=== PATIENT | female | born 1965 | race African-American/Black ===

== ENCOUNTER 2019-03-22 11:21 | Inpatient (IN) | payer MEDICARE, MEDICAID ==
[~2019-03-22] VITALS: Ht 160 cm; Wt 39.6 kg
[2019-03-22] MEDS ORDERED: SODIUM CHLORIDE 0.9% 1,000 ML IV ONE (12:01)
[2019-03-22] MEDS ORDERED: MORPHINE SULFATE 4 MG/ML CPJ (NOT FOR IM USE) IV STA (12:21)
[2019-03-22] MEDS ORDERED: ONDANSETRON HCL 4MG/2ML INJ IV STA (12:21)
[2019-03-22 12:39] LABS: BASOPHILS % 0.5 % (0.0-2.0); EOSINOPHILS % 0.2 % (0.0-5.0); HEMATOCRIT. 37.2 % (36.0-48.0); HEMOGLOBIN. 12.2 g/dL (12.0-16.0); LYMPHOCYTES % 17.9 % (20.0-50.0); MEAN CORPUSCULAR HEMOGLOBIN 29.2 pg (28.0-32.0); MEAN CORPUSCULAR VOLUME 88.8 fL (81.0-99.0); MONOCYTES % 7.6 % (2.0-8.0); NEUTROPHILS % 73.8 % (40.0-76.0); PLATELET 236 x1000/uL (130-400); RED BLOOD CELL COUNT 4.19 mill/uL (4.2-5.4)
[2019-03-22 12:44] LABS: CHLORIDE 107 mEq/L (98-107); PROTHROMBIN TIME 10.5 sec (9.6-11.0)
[2019-03-22 12:49] LABS: ETHANOL BLOOD < 10 mg/dL
[2019-03-22 13:27] LABS: HCG SCREEN NEGATIVE
[2019-03-22 16:43] LABS: CLARITY URINE CLEAR (CLEAR); COLOR URINE YELLOW (YELLOW); KETONES URINE NEGATIVE (NEGATIVE); LEUKOCYTE ESTERASE URINE 2+ (NEGATIVE); NITRITE URINE NEGATIVE (NEGATIVE); OCCULT BLOOD URINE NEGATIVE (NEGATIVE); PROTEIN URINE 1+ (NEGATIVE); SPECIFIC GRAVITY URINE 1.016 (1.005-1.030)
[2019-03-22] MEDS ORDERED: CEFTRIAXONE 1 G PREMIX 50 ML IV ONE (17:00)
[2019-03-22] MEDS ORDERED: METRONIDAZOLE 500MG TABLET PO ONE (19:00)
[2019-03-22] MEDS ORDERED: HYDROCODONE/ACETAMINOPHEN 5/325MG TABLET PO PRN (19:30)
[2019-03-22] MEDS ORDERED: CLONIDINE 0.1MG TABLET PO PRN (19:30)
[2019-03-22] MEDS ORDERED: GUAIFENESIN 200MG/10ML SUGAR FREE UDC PO PRN (19:30)
[2019-03-22] MEDS ORDERED: DOCUSATE SODIUM 100MG CAPSULE PO PRN (19:30)
[2019-03-22] MEDS ORDERED: ACETAMINOPHEN 325MG TABLET PO PRN (19:30)
[2019-03-22] MEDS ORDERED: ONDANSETRON HCL 4MG/2ML INJ IV PRN (19:30)
[2019-03-22 21:20] VITALS: BP 128/83
[2019-03-22] MEDS: PREDNISONE 20MG TABLET PO SCH (23:25)
[2019-03-22] MEDS ORDERED: FOLI-43 PO (23:59)
[2019-03-22] MEDS ORDERED: HYDR200T80 PO (23:59)
[2019-03-22] MEDS ORDERED: CHOL20004 PO (23:59)
[2019-03-23] VITALS: BP 140/91
[2019-03-23] MEDS: LEVOFLOXACIN 500MG PREMIX 100 ML IV SCH ×2 (00:01→23:53)
[2019-03-23 04:00] VITALS: BP 102/67
[2019-03-23 07:27] LABS: CHLORIDE 108 mEq/L (98-107)
[2019-03-23 07:29] LABS: BASOPHILS % 0.2 % (0.0-2.0); EOSINOPHILS % 0.1 % (0.0-5.0); HEMATOCRIT. 35.2 % (36.0-48.0); HEMOGLOBIN. 11.7 g/dL (12.0-16.0); LYMPHOCYTES % 16.7 % (20.0-50.0); MEAN CORPUSCULAR HEMOGLOBIN 29.3 pg (28.0-32.0); MEAN CORPUSCULAR VOLUME 88.2 fL (81.0-99.0); MEAN PLATELET VOLUME 7.9 fl (7.4-10.4); MONOCYTES % 2.7 % (2.0-8.0); NEUTROPHILS % 80.3 % (40.0-76.0); PLATELET 257 x1000/uL (130-400); RED BLOOD CELL COUNT 3.99 mill/uL (4.2-5.4); RED CELL DISTRIBUTION WIDTH 14.9 % (11.6-14.6)
[2019-03-23 08:00] VITALS: BP 138/87
[2019-03-23] MEDS ORDERED: ENOXAPARIN 40MG/0.4ML SYR SUBCUT SCH (09:00)
[2019-03-23] MEDS: AMLODIPINE 10MG TABLET PO SCH (09:18)
[2019-03-23] MEDS: PREDNISONE 20MG TABLET PO SCH (09:18)
[2019-03-23 12:00] VITALS: BP 135/86
[2019-03-23] MEDS: HYDROXYCHLOROQUINE SULFATE 200MG TABLET PO SCH (13:50)
[2019-03-23] MEDS: FOLIC ACID 1MG TABLET PO SCH (13:51)
[2019-03-23 16:00] VITALS: BP 134/84
[2019-03-23 20:00] VITALS: BP 128/85
[2019-03-23] MEDS: LORATADINE 10MG TABLET PO SCH (20:50)
[2019-03-23] MEDS: PANTOPRAZOLE 40MG DR TABLET PO SCH (20:50)
[2019-03-23] MEDS ORDERED: LOSARTAN POTASSIUM 50 MG TABLET PO SCH (21:00)
[2019-03-24] VITALS: BP 129/86
[2019-03-24 04:00] VITALS: BP 126/83
[2019-03-24 08:00] VITALS: BP 128/83
[2019-03-24] MEDS: PANTOPRAZOLE 40MG DR TABLET PO SCH (08:40)
[2019-03-24] MEDS ORDERED: ENOXAPARIN 30MG/0.3ML SYR SUBCUT SCH (09:00)
[2019-03-24] MEDS: FOLIC ACID 1MG TABLET PO SCH (09:42)
[2019-03-24] MEDS: HYDROXYCHLOROQUINE SULFATE 200MG TABLET PO SCH (09:42)
[2019-03-24] MEDS: PREDNISONE 20MG TABLET PO SCH ×2 (09:43→13:09)
[2019-03-24] MEDS: LORATADINE 10MG TABLET PO SCH (09:43)
[2019-03-24] MEDS: AMLODIPINE 10MG TABLET PO SCH (09:43)
[2019-03-24 12:00] VITALS: BP 142/88
[2019-03-24] MEDS ORDERED: P20 PO (12:52)
[2019-03-24] MEDS ORDERED: AMOX1TAB15 MT (12:52)
[2019-03-24 14:00] VITALS: BP 142/88
== END 2019-03-24 14:45 | disposition home or self-care (01) | DRG 545 ==
LOC: ER 11:21 → 5WST 15:59 → ENRESERV 18:50
PROVIDERS: ADMIT Hospitalist; ATTEND Hospitalist
DX: M32.9 Systemic lupus erythematosus, unspecified (principal); E43 Unspecified severe protein-calorie malnutrition; N39.0 Urinary tract infection, site not specified; I10 Essential (primary) hypertension; J01.90 Acute sinusitis, unspecified; A59.9 Trichomoniasis, unspecified; I73.00 Raynaud's syndrome without gangrene; J44.9 Chronic obstructive pulmonary disease, unspecified; K12.1 Other forms of stomatitis; K21.9 Gastro-esophageal reflux disease without esophagitis; M19.90 Unspecified osteoarthritis, unspecified site; Z83.2 Family history of diseases of the blood and blood-forming organs and certain disorders involving the immune mechanism; Z82.61 Family history of arthritis; Z82.49 Family history of ischemic heart disease and other diseases of the circulatory system; Z87.891 Personal history of nicotine dependence
CPT/HCPCS: 36415; 71045; 80320; 81003; 84484; 84703; 85651; 86141; 93970; 96361; 96365; 96375; 99285; J0696; J1650; J1956; J2270; J2405; J7030; J7040; J7512; G0480

== ENCOUNTER 2021-08-27 13:45 | Inpatient (IN) | payer MEDICARE, MEDICAID ==
[~2021-08-27] VITALS: Ht 160 cm; Wt 44.2 kg
[~2021-08-27 13:45] MED LIST: AMOX1TAB15 MT; CHOL20004 PO; FOLI-43 PO; HYDR200T80 PO; P20 PO
[2021-08-27] MEDS ORDERED: IPRATROPIUM BROMIDE (0.02%) 0.5MG/2.5ML NEB HHN STA (14:46)
[2021-08-27] MEDS ORDERED: METHYLPREDNISOLONE SOD SUCC 125 MG/2 ML VIAL IV STA (14:46)
[2021-08-27] MEDS ORDERED: ALBUTEROL (0.083%) 2.5MG/3ML NEB HHN SCH (15:00)
[2021-08-27 15:56] LABS: HEMATOCRIT. 34.8 % (36.0-48.0); HEMOGLOBIN. 11.2 g/dL (12.0-16.0); MEAN CORPUSCULAR HEMOGLOBIN 29.4 pg (28.0-32.0); MEAN PLATELET VOLUME 7.4 fl (7.4-10.4); PLATELET 212 x1000/uL (130-400); RED BLOOD CELL COUNT 3.82 mill/uL (4.2-5.4); RED CELL DISTRIBUTION WIDTH 15.3 % (11.6-14.6)
[2021-08-27] MEDS ORDERED: LIDOCAINE HCL/EPINEPHRINE 1%-EPI 1:100,000 20 ML VIAL INFIL ONE (16:00)
[2021-08-27 16:03] LABS: CHLORIDE 106 mEq/L (98-107)
[2021-08-27 16:21] LABS: PLATELET ESTIMATE NORMAL
[2021-08-27] MEDS ORDERED: MORPHINE SULFATE 4 MG/ML CPJ (NOT FOR IM USE) IV ONE (16:45)
[2021-08-27] MEDS ORDERED: ONDANSETRON HCL 4MG/2ML INJ IV NR (17:00)
[2021-08-27] MEDS ORDERED: DOXYCYCLINE 100 MG in DEXT 5% WATER 100 ML IV SCH (17:30)
[2021-08-27] MEDS ORDERED: CEFTRIAXONE 1 G PREMIX 50 ML IV ONE (17:30)
[2021-08-27 22:00] VITALS: BP 128/83
[2021-08-27] MEDS ORDERED: HEPARIN 25,000 UNITS PREMIX 250 ML IV PRN (23:15)
[2021-08-27] MEDS ORDERED: ALBUTEROL (0.083%) 2.5MG/3ML NEB HHN PRN (23:15)
[2021-08-27] MEDS ORDERED: HEPARIN BOLUS PRN aPTT <36 IV (23:45)
[2021-08-27] MEDS ORDERED: HEPARIN 80 UNITS/KG BOLUS IV NR (23:45)
[2021-08-27] MEDS ORDERED: HEPARIN 25,000 UNITS PREMIX 250 ML IV SCH (23:45)
[2021-08-28] VITALS (12 sets, daily range): BP systolic 114–158; BP diastolic 50–98
[2021-08-28] MEDS ORDERED: MAGNESIUM/ALUMINUM HYDROXIDE/SIMETHICONE 30ML UDC PO PRN (01:00)
[2021-08-28] MEDS ORDERED: LORAZEPAM 2MG/ML CPJ IV PRN (01:00)
[2021-08-28] MEDS ORDERED: ZOLPIDEM TARTRATE 5MG TABLET PO PRN (01:00)
[2021-08-28] MEDS ORDERED: METHOTREXATE SODIUM 2 . 5MG TABLET PO SCH (01:00)
[2021-08-28] MEDS ORDERED: ONDANSETRON HCL 4MG/2ML INJ IV PRN (01:00)
[2021-08-28] MEDS ORDERED: DIPHENHYDRAMINE 50MG/ML VIAL IV PRN (01:00)
[2021-08-28] MEDS ORDERED: ACETAMINOPHEN 325MG TABLET PO PRN (01:00)
[2021-08-28] MEDS ORDERED: IPRATROPIUM/ALBUTEROL 0.5-3(2.5)MG/3ML NEB NEB PRN (01:00)
[2021-08-28] MEDS ORDERED: DOCUSATE SODIUM 100MG CAPSULE PO PRN (01:00)
[2021-08-28] MEDS ORDERED: VANCOMYCIN 1G PREMIX 200 ML IV SCH (01:00)
[2021-08-28 02:03] LABS: INR 1.1; PARTIAL THROMBOPLASTIN TIME 25.8 sec (23.4-31.0); PROTHROMBIN TIME 11.3 sec (9.6-11.0)
[2021-08-28] MEDS: VENLAFAXINE HCL 50MG TABLET PO SCH ×2 (02:44→20:59)
[2021-08-28] MEDS ORDERED: LEVOFLOXACIN 500MG PREMIX 100 ML IV SCH (03:00)
[2021-08-28] MEDS: HEPARIN 25,000 UNITS in DEXT 5% WATER 245 ML IV SCH ×2 (03:12→21:19)
[2021-08-28] MEDS: DEXT 5%/0.45% NACL 1000ML 1,000 ML IV SCH ×2 (03:31→15:26)
[2021-08-28] MEDS ORDERED: VANCOMYCIN 750MG PMX (XELLIA) 150 ML IV NR (04:00)
[2021-08-28] MEDS: METHYLPREDNISOLONE SOD SUCC 40 MG/ML VIAL IV SCH ×3 (05:24→17:34)
[2021-08-28] MEDS: OXYBUTYNIN CHLORIDE 5MG TABLET PO SCH ×3 (05:25→21:00)
[2021-08-28] MEDS ORDERED: ALENDRONATE SODIUM 35MG TABLET PO SCH (07:00)
[2021-08-28 07:28] LABS: HEMATOCRIT. 33.4 % (36.0-48.0); HEMOGLOBIN. 10.7 g/dL (12.0-16.0); MEAN CORPUSCULAR HEMOGLOBIN 28.8 pg (28.0-32.0); MEAN CORPUSCULAR VOLUME 90.2 fL (81.0-99.0); PLATELET 227 x1000/uL (130-400); RED BLOOD CELL COUNT 3.71 mill/uL (4.2-5.4); RED CELL DISTRIBUTION WIDTH 15.1 % (11.6-14.6)
[2021-08-28 07:45] LABS: CHLORIDE 104 mEq/L (98-107)
[2021-08-28 07:54] LABS: CLARITY URINE CLEAR (CLEAR); COLOR URINE YELLOW (YELLOW); KETONES URINE NEGATIVE (NEGATIVE); LEUKOCYTE ESTERASE URINE NEGATIVE (NEGATIVE); NITRITE URINE NEGATIVE (NEGATIVE); OCCULT BLOOD URINE NEGATIVE (NEGATIVE); PH URINE 5.5 (4.5-8.0); PROTEIN URINE 1+ (NEGATIVE); SPECIFIC GRAVITY URINE 1.083 (1.005-1.030); UROBILINOGEN URINE 0.2 E.U./dL (0.2-1.0)
[2021-08-28 07:55] LABS: CREATINE KINASE 100 IU/L (26-192); T4 FREE 1.22 ng/dL (0.76-1.46)
[2021-08-28 07:58] LABS: CREATINE KINASE MB FRACTION 2.4 ng/mL (0.5-3.6)
[2021-08-28] MEDS ORDERED: *PATIENT'S OWN MEDICATION STORAGE XX SCH (08:00)
[2021-08-28] MEDS ORDERED: ERGOCALCIFEROL 50000UNITS CAPSULE PO SCH (09:00)
[2021-08-28] MEDS: METOPROLOL SUCCINATE 50MG ER TABLET PO SCH (09:00)
[2021-08-28] MEDS ORDERED: HYDRALAZINE HCL 25MG TABLET PO SCH (09:00)
[2021-08-28] MEDS: AMLODIPINE 5MG TABLET PO SCH (09:18)
[2021-08-28] MEDS: HYDROXYCHLOROQUINE SULFATE 200MG TABLET PO SCH (09:19)
[2021-08-28] MEDS: FOLIC ACID 1MG TABLET PO SCH (09:19)
[2021-08-28] MEDS: TRIAMCINOLONE ACETONIDE 0.1% CREAM 15GM TOP SCH ×2 (09:24→21:06)
[2021-08-28] MEDS: FLUTICASONE/VILANTEROL 200-25 BLST.W.DEV ORI SCH (09:24)
[2021-08-28] MEDS ORDERED: VANCOMYCIN 750MG PMX (XELLIA) 150 ML IV SCH (16:00)
[2021-08-28 16:44] LABS: CREATINE KINASE MB FRACTION 3.3 ng/mL (0.5-3.6)
[2021-08-28] MEDS: MONTELUKAST SODIUM 10MG TABLET PO SCH (17:16)
[2021-08-28] MEDS: HYDROMORPHONE HCL/PF 2MG/ML CPJ IV PRN (18:18)
[2021-08-28 20:22] LABS: PLATELET ESTIMATE NORMAL
[2021-08-28] MEDS: CYCLOBENZAPRINE 10MG TABLET PO SCH (20:59)
[2021-08-28] MEDS: HYDRALAZINE HCL 50MG TABLET PO SCH (21:00)
[2021-08-28] MEDS: HEPARIN BOLUS PRN aPTT 37-44 IV (21:02)
[2021-08-28] MEDS: LACTULOSE 20G/30ML UDC PO SCH (21:05)
[2021-08-28] MEDS: LOSARTAN POTASSIUM 100 MG TABLET PO SCH (21:06)
[2021-08-28] MEDS: CEFEPIME 1,000 MG in DEXTROSE 5% WATER 50 ML IV SCH (22:58)
[2021-08-29] VITALS (12 sets, daily range): BP systolic 110–144; BP diastolic 71–96
[2021-08-29] MEDS: DOXYCYCLINE 100 MG in DEXT 5% WATER 100 ML IV SCH ×3 (00:16→21:42)
[2021-08-29] MEDS: METHYLPREDNISOLONE SOD SUCC 40 MG/ML VIAL IV SCH ×4 (00:16→18:30)
[2021-08-29] MEDS: IPRATROPIUM/ALBUTEROL 0.5-3(2.5)MG/3ML NEB NEB SCH ×5 (00:39→21:00)
[2021-08-29 03:12] LABS: HEMATOCRIT. 29.5 % (36.0-48.0); HEMOGLOBIN. 9.3 g/dL (12.0-16.0); MEAN CORPUSCULAR HEMOGLOBIN 28.3 pg (28.0-32.0); MEAN CORPUSCULAR VOLUME 90.1 fL (81.0-99.0); MEAN PLATELET VOLUME 7.5 fl (7.4-10.4); PLATELET 228 x1000/uL (130-400); RED BLOOD CELL COUNT 3.28 mill/uL (4.2-5.4); RED CELL DISTRIBUTION WIDTH 15.6 % (11.6-14.6)
[2021-08-29 03:28] LABS: CHLORIDE 102 mEq/L (98-107)
[2021-08-29] MEDS: DEXT 5%/0.45% NACL 1000ML 1,000 ML IV SCH ×3 (04:06→17:14)
[2021-08-29] MEDS: HEPARIN 25,000 UNITS in DEXT 5% WATER 245 ML IV SCH ×2 (04:07→09:52)
[2021-08-29] MEDS: HEPARIN BOLUS PRN aPTT 37-44 IV (04:07)
[2021-08-29 05:56] LABS: PLATELET ESTIMATE NORMAL
[2021-08-29] MEDS: OXYBUTYNIN CHLORIDE 5MG TABLET PO SCH ×3 (06:34→21:37)
[2021-08-29 07:23] LABS: INR 1.1; PROTHROMBIN TIME 11.3 sec (9.6-11.0)
[2021-08-29 07:43] LABS: PARTIAL THROMBOPLASTIN TIME 75.3 sec (23.4-31.0)
[2021-08-29] MEDS: HYDRALAZINE HCL 50MG TABLET PO SCH ×2 (09:00→21:37)
[2021-08-29] MEDS ORDERED: METHOTREXATE SODIUM 2 . 5MG TABLET PO SCH ×2 (09:00→21:00)
[2021-08-29] MEDS: FOLIC ACID 1MG TABLET PO SCH (09:05)
[2021-08-29] MEDS: AMLODIPINE 5MG TABLET PO SCH (09:05)
[2021-08-29] MEDS: HYDROXYCHLOROQUINE SULFATE 200MG TABLET PO SCH (09:05)
[2021-08-29] MEDS: FLUTICASONE/VILANTEROL 200-25 BLST.W.DEV ORI SCH (09:06)
[2021-08-29] MEDS: METOPROLOL SUCCINATE 50MG ER TABLET PO SCH (09:06)
[2021-08-29 09:07] LABS: ANTI-DNA DOUBLE STRANDED QUANT < 1 IU/mL (0-9)
[2021-08-29] MEDS: TRIAMCINOLONE ACETONIDE 0.1% CREAM 15GM TOP SCH ×2 (09:07→23:29)
[2021-08-29] MEDS: HYDROMORPHONE HCL/PF 2MG/ML CPJ IV PRN (09:08)
[2021-08-29] MEDS ORDERED: LIDOCAINE HCL 1% 10 MG/ML 10ML VIAL ONE (09:08)
[2021-08-29 09:33] LABS: BG CARBOXYHEMOGLOBIN 0.2 % (0.5-1.5); BG DEOXYHEMOGLOBIN 17.4 % (0.0-5.0); BG FRACTION INSPIRED OXYGEN 21; BG HCO3 ACT 20.3 mmol/L (22.0-26.0); BG METHEMOGLOBIN 0.3 % (0.0-1.5); BG OXYGEN SATURATION 82.5 % (92.0-98.5); BG OXYHEMOGLOBIN 82.1 % (94.0-97.0); BG PCO2 30.1 mmHg (35.0-45.0); BG PH 7.447 (7.350-7.450); BG PO2 48.4 mmHg (75.0-100.0); BG SAMPLE SITE RIGHT BRACHIAL; BG TOTAL HEMOGLOBIN 9.9 g/dL (12.0-18.0); BG VENT MODE ROOM AIR
[2021-08-29 10:09] LABS: CHLORIDE 105 mEq/L (98-107)
[2021-08-29] MEDS: CEFEPIME 1,000 MG in DEXTROSE 5% WATER 50 ML IV SCH ×2 (11:26→21:42)
[2021-08-29] MEDS: MONTELUKAST SODIUM 10MG TABLET PO SCH (18:30)
[2021-08-29] MEDS: LOSARTAN POTASSIUM 100 MG TABLET PO SCH (21:37)
[2021-08-29] MEDS: CYCLOBENZAPRINE 10MG TABLET PO SCH (21:37)
[2021-08-29] MEDS: VENLAFAXINE HCL 50MG TABLET PO SCH (21:37)
[2021-08-29] MEDS: LACTULOSE 20G/30ML UDC PO SCH (21:42)
[2021-08-30] VITALS (13 sets, daily range): BP systolic 120–142; BP diastolic 69–97
[2021-08-30] MEDS: METHYLPREDNISOLONE SOD SUCC 40 MG/ML VIAL IV SCH ×4 (00:12→17:52)
[2021-08-30] MEDS: DEXT 5%/0.45% NACL 1000ML 1,000 ML IV SCH ×3 (03:21→23:58)
[2021-08-30] MEDS: OXYBUTYNIN CHLORIDE 5MG TABLET PO SCH ×3 (06:15→21:38)
[2021-08-30] MEDS: HYDROMORPHONE HCL/PF 2MG/ML CPJ IV PRN ×2 (06:32→22:15)
[2021-08-30 06:54] LABS: PARTIAL THROMBOPLASTIN TIME 60.4 sec (23.4-31.0); PROTHROMBIN TIME 10.9 sec (9.6-11.0)
[2021-08-30 06:56] LABS: HEMATOCRIT. 27.3 % (36.0-48.0); HEMOGLOBIN. 8.7 g/dL (12.0-16.0); MEAN CORPUSCULAR HEMOGLOBIN 28.8 pg (28.0-32.0); MEAN CORPUSCULAR VOLUME 90.5 fL (81.0-99.0); MEAN PLATELET VOLUME 7.5 fl (7.4-10.4); PLATELET 240 x1000/uL (130-400); RED BLOOD CELL COUNT 3.02 mill/uL (4.2-5.4); RED CELL DISTRIBUTION WIDTH 15.3 % (11.6-14.6)
[2021-08-30 07:09] LABS: CHLORIDE 105 mEq/L (98-107)
[2021-08-30] MEDS: IPRATROPIUM/ALBUTEROL 0.5-3(2.5)MG/3ML NEB NEB SCH ×4 (07:15→19:59)
[2021-08-30 09:07] LABS: ALDOLASE 12.4 U/L (3.3-10.3)
[2021-08-30] MEDS: AMLODIPINE 5MG TABLET PO SCH (09:27)
[2021-08-30] MEDS: HYDRALAZINE HCL 50MG TABLET PO SCH ×2 (09:27→21:38)
[2021-08-30] MEDS: FOLIC ACID 1MG TABLET PO SCH (09:28)
[2021-08-30] MEDS: METOPROLOL SUCCINATE 50MG ER TABLET PO SCH (09:28)
[2021-08-30] MEDS: FLUTICASONE/VILANTEROL 200-25 BLST.W.DEV ORI SCH (09:28)
[2021-08-30] MEDS: HYDROXYCHLOROQUINE SULFATE 200MG TABLET PO SCH (09:28)
[2021-08-30] MEDS: CEFEPIME 1,000 MG in DEXTROSE 5% WATER 50 ML IV SCH ×2 (09:29→21:38)
[2021-08-30] MEDS: APIXABAN 5 MG TABLET PO SCH ×2 (09:48→17:52)
[2021-08-30] MEDS: DOXYCYCLINE 100 MG in DEXT 5% WATER 100 ML IV SCH ×2 (09:48→21:37)
[2021-08-30] MEDS: TRIAMCINOLONE ACETONIDE 0.1% CREAM 15GM TOP SCH ×2 (10:02→21:39)
[2021-08-30 13:11] LABS: ACTIN (SMOOTH MUSCLE) ANTIBODY 3 Units (0-19); ANGIOTENSION CONVERTING ENZYME 24 U/L (14-82); ATYPICAL P-ANCA <1:20 titer (Neg:<1:20); CYTOPLASMIC C-ANCA <1:20 titer (Neg:<1:20); PERINUCLEAR P-ANCA <1:20 titer (Neg:<1:20)
[2021-08-30 14:12] LABS: PLATELET ESTIMATE NORMAL
[2021-08-30] MEDS: MONTELUKAST SODIUM 10MG TABLET PO SCH (17:52)
[2021-08-30] MEDS: CYCLOBENZAPRINE 10MG TABLET PO SCH (21:38)
[2021-08-30] MEDS: LOSARTAN POTASSIUM 100 MG TABLET PO SCH (21:38)
[2021-08-30] MEDS: LACTULOSE 20G/30ML UDC PO SCH (21:38)
[2021-08-30] MEDS: VENLAFAXINE HCL 50MG TABLET PO SCH (21:43)
[2021-08-31] VITALS (12 sets, daily range): BP systolic 114–137; BP diastolic 62–88
[2021-08-31] MEDS: IPRATROPIUM/ALBUTEROL 0.5-3(2.5)MG/3ML NEB NEB SCH ×5 (00:01→20:49)
[2021-08-31] MEDS: METHYLPREDNISOLONE SOD SUCC 40 MG/ML VIAL IV SCH (00:09)
[2021-08-31 06:33] LABS: HEMOGLOBIN. 8.4 g/dL (12.0-16.0); MEAN CORPUSCULAR HEMOGLOBIN 28.6 pg (28.0-32.0); MEAN CORPUSCULAR VOLUME 88.4 fL (81.0-99.0); MEAN PLATELET VOLUME 7.2 fl (7.4-10.4); PLATELET 188 x1000/uL (130-400); RED BLOOD CELL COUNT 2.95 mill/uL (4.2-5.4); RED CELL DISTRIBUTION WIDTH 14.8 % (11.6-14.6)
[2021-08-31] MEDS: OXYBUTYNIN CHLORIDE 5MG TABLET PO SCH ×3 (06:36→22:17)
[2021-08-31 06:58] LABS: CHLORIDE 103 mEq/L (98-107)
[2021-08-31] MEDS: HYDROXYCHLOROQUINE SULFATE 200MG TABLET PO SCH (08:29)
[2021-08-31] MEDS: FOLIC ACID 1MG TABLET PO SCH (08:29)
[2021-08-31] MEDS: APIXABAN 5 MG TABLET PO SCH ×2 (08:29→17:25)
[2021-08-31] MEDS: CEFEPIME 1,000 MG in DEXTROSE 5% WATER 50 ML IV SCH ×2 (08:29→22:17)
[2021-08-31] MEDS: FLUTICASONE/VILANTEROL 200-25 BLST.W.DEV ORI SCH (08:29)
[2021-08-31] MEDS: PREDNISONE 20MG TABLET PO SCH ×2 (08:30→17:25)
[2021-08-31] MEDS: HYDRALAZINE HCL 50MG TABLET PO SCH ×2 (08:30→22:16)
[2021-08-31] MEDS: METOPROLOL SUCCINATE 50MG ER TABLET PO SCH (08:32)
[2021-08-31] MEDS: AMLODIPINE 5MG TABLET PO SCH (08:32)
[2021-08-31] MEDS: TRIAMCINOLONE ACETONIDE 0.1% CREAM 15GM TOP SCH ×2 (08:33→22:18)
[2021-08-31 09:10] LABS: ANTI-MYELOPEROXIDASE AB < 9.0 U/mL (0.0-9.0)
[2021-08-31] MEDS: DOXYCYCLINE 100 MG in DEXT 5% WATER 100 ML IV SCH ×2 (09:51→22:17)
[2021-08-31 10:09] LABS: BG BASE EXCESS -0.2 mmol/L (-2.0-2.0); BG CARBOXYHEMOGLOBIN 0.2 % (0.5-1.5); BG DEOXYHEMOGLOBIN 11.6 % (0.0-5.0); BG FRACTION INSPIRED OXYGEN 21; BG HCO3 ACT 22.7 mmol/L (22.0-26.0); BG METHEMOGLOBIN 0.2 % (0.0-1.5); BG OXYGEN SATURATION 88.4 % (92.0-98.5); BG PCO2 30.4 mmHg (35.0-45.0); BG PH 7.491 (7.350-7.450); BG PO2 53.4 mmHg (75.0-100.0); BG SAMPLE SITE RIGHT RADIAL; BG TOTAL HEMOGLOBIN 8.7 g/dL (12.0-18.0)
[2021-08-31 13:08] LABS: PLATELET ESTIMATE NORMAL
[2021-08-31 17:06] LABS: ANA IFA Positive (.)
[2021-08-31] MEDS: MONTELUKAST SODIUM 10MG TABLET PO SCH (17:25)
[2021-08-31] MEDS: HYDROMORPHONE HCL/PF 2MG/ML CPJ IV PRN (18:36)
[2021-08-31] MEDS: VENLAFAXINE HCL 50MG TABLET PO SCH (22:16)
[2021-08-31] MEDS: CYCLOBENZAPRINE 10MG TABLET PO SCH (22:17)
[2021-08-31] MEDS: LOSARTAN POTASSIUM 100 MG TABLET PO SCH (22:17)
[2021-08-31] MEDS: LACTULOSE 20G/30ML UDC PO SCH (22:17)
[2021-09-01] VITALS (12 sets, daily range): BP systolic 103–133; BP diastolic 65–83
[2021-09-01] MEDS: IPRATROPIUM/ALBUTEROL 0.5-3(2.5)MG/3ML NEB NEB SCH ×4 (00:27→21:24)
[2021-09-01] MEDS: OXYBUTYNIN CHLORIDE 5MG TABLET PO SCH ×3 (06:33→21:54)
[2021-09-01 06:39] LABS: HEMATOCRIT. 24.6 % (36.0-48.0); MEAN CORPUSCULAR HEMOGLOBIN 29.5 pg (28.0-32.0); MEAN CORPUSCULAR VOLUME 90.3 fL (81.0-99.0); MEAN PLATELET VOLUME 7.3 fl (7.4-10.4); PLATELET 178 x1000/uL (130-400); RED BLOOD CELL COUNT 2.72 mill/uL (4.2-5.4); RED CELL DISTRIBUTION WIDTH 15.4 % (11.6-14.6)
[2021-09-01 06:47] LABS: CHLORIDE 105 mEq/L (98-107)
[2021-09-01] MEDS: TRIAMCINOLONE ACETONIDE 0.1% CREAM 15GM TOP SCH ×2 (08:41→20:44)
[2021-09-01] MEDS: FLUTICASONE/VILANTEROL 200-25 BLST.W.DEV ORI SCH (08:41)
[2021-09-01] MEDS: CEFEPIME 1,000 MG in DEXTROSE 5% WATER 50 ML IV SCH ×2 (08:42→20:41)
[2021-09-01] MEDS: APIXABAN 5 MG TABLET PO SCH ×2 (08:42→17:31)
[2021-09-01] MEDS: PREDNISONE 20MG TABLET PO SCH ×3 (08:42→21:54)
[2021-09-01] MEDS: HYDROXYCHLOROQUINE SULFATE 200MG TABLET PO SCH (08:42)
[2021-09-01] MEDS: FOLIC ACID 1MG TABLET PO SCH (08:43)
[2021-09-01] MEDS: AMLODIPINE 5MG TABLET PO SCH (08:43)
[2021-09-01] MEDS: METOPROLOL SUCCINATE 50MG ER TABLET PO SCH (08:43)
[2021-09-01] MEDS: HYDRALAZINE HCL 50MG TABLET PO SCH ×2 (08:43→20:43)
[2021-09-01] MEDS: DOXYCYCLINE 100 MG in DEXT 5% WATER 100 ML IV SCH ×2 (08:48→20:42)
[2021-09-01 09:07] LABS: ANTI-PROTEINASE 3 ABS < 3.5 U/mL (0.0-3.5)
[2021-09-01] MEDS ORDERED: NALOXONE HCL 0.4MG/ML VIAL IV PRN (09:45)
[2021-09-01 10:37] LABS: BG BASE EXCESS 4.9 mmol/L (-2.0-2.0); BG CARBOXYHEMOGLOBIN 0.5 % (0.5-1.5); BG FRACTION INSPIRED OXYGEN 32; BG HCO3 ACT 28.3 mmol/L (22.0-26.0); BG METHEMOGLOBIN 0.4 % (0.0-1.5); BG OXYHEMOGLOBIN 96.1 % (94.0-97.0); BG PCO2 37.1 mmHg (35.0-45.0); BG PH 7.501 (7.350-7.450); BG PO2 90.7 mmHg (75.0-100.0); BG SAMPLE SITE RIGHT BRACHIAL; BG TOTAL HEMOGLOBIN 9.4 g/dL (12.0-18.0); BG VENT MODE NASAL CANNULA
[2021-09-01 14:23] LABS: PLATELET ESTIMATE NORMAL
[2021-09-01] MEDS: MONTELUKAST SODIUM 10MG TABLET PO SCH (17:32)
[2021-09-01 17:52] LABS: BG BASE EXCESS 4.9 mmol/L (-2.0-2.0); BG CARBOXYHEMOGLOBIN 0.1 % (0.5-1.5); BG DEOXYHEMOGLOBIN 5.2 % (0.0-5.0); BG FRACTION INSPIRED OXYGEN 21; BG HCO3 ACT 27.8 mmol/L (22.0-26.0); BG METHEMOGLOBIN 0.3 % (0.0-1.5); BG OXYGEN SATURATION 94.8 % (92.0-98.5); BG OXYHEMOGLOBIN 94.4 % (94.0-97.0); BG PCO2 34.7 mmHg (35.0-45.0); BG PH 7.522 (7.350-7.450); BG PO2 71.3 mmHg (75.0-100.0); BG SAMPLE SITE LEFT BRACHIAL; BG TOTAL HEMOGLOBIN 9.4 g/dL (12.0-18.0); BG VENT MODE ROOM AIR
[2021-09-01 19:06] LABS: ANTI-CARDIOLIPIN AB IGA < 9 APL U/mL (0-11); ANTI-CARDIOLIPIN AB IGG < 9 GPL U/mL (0-14); ANTI-CARDIOLIPIN AB IGM < 9 MPL U/mL (0-12)
[2021-09-01] MEDS: LACTULOSE 20G/30ML UDC PO SCH (20:41)
[2021-09-01] MEDS: HYDROMORPHONE HCL/PF 2MG/ML CPJ IV PRN (20:42)
[2021-09-01] MEDS: CYCLOBENZAPRINE 10MG TABLET PO SCH (20:43)
[2021-09-01] MEDS: LOSARTAN POTASSIUM 100 MG TABLET PO SCH (20:43)
[2021-09-01] MEDS: VENLAFAXINE HCL 50MG TABLET PO SCH (20:44)
[2021-09-02] VITALS (7 sets, daily range): BP systolic 123–145; BP diastolic 79–97
[2021-09-02] MEDS: OXYBUTYNIN CHLORIDE 5MG TABLET PO SCH (06:23)
[2021-09-02 06:54] LABS: HEMATOCRIT. 24.2 % (36.0-48.0); MEAN CORPUSCULAR VOLUME 87.8 fL (81.0-99.0); MEAN PLATELET VOLUME 7.3 fl (7.4-10.4); PLATELET 187 x1000/uL (130-400); RED BLOOD CELL COUNT 2.75 mill/uL (4.2-5.4)
[2021-09-02 07:01] LABS: CHLORIDE 104 mEq/L (98-107)
[2021-09-02] MEDS: IPRATROPIUM/ALBUTEROL 0.5-3(2.5)MG/3ML NEB NEB SCH ×2 (08:32→11:32)
[2021-09-02] MEDS: HYDROXYCHLOROQUINE SULFATE 200MG TABLET PO SCH (09:42)
[2021-09-02] MEDS: PREDNISONE 20MG TABLET PO SCH (09:42)
[2021-09-02] MEDS: APIXABAN 5 MG TABLET PO SCH (09:42)
[2021-09-02] MEDS: HYDRALAZINE HCL 50MG TABLET PO SCH (09:42)
[2021-09-02] MEDS: FOLIC ACID 1MG TABLET PO SCH (09:42)
[2021-09-02] MEDS: FLUTICASONE/VILANTEROL 200-25 BLST.W.DEV ORI SCH (09:43)
[2021-09-02] MEDS: METOPROLOL SUCCINATE 50MG ER TABLET PO SCH (09:43)
[2021-09-02] MEDS: CEFEPIME 1,000 MG in DEXTROSE 5% WATER 50 ML IV SCH (09:47)
[2021-09-02] MEDS: AMLODIPINE 5MG TABLET PO SCH (09:47)
[2021-09-02] MEDS: TRIAMCINOLONE ACETONIDE 0.1% CREAM 15GM TOP SCH (09:56)
[2021-09-02] MEDS: DOXYCYCLINE 100 MG in DEXT 5% WATER 100 ML IV SCH (10:35)
[2021-09-02 21:37] LABS: PLATELET ESTIMATE NORMAL
[2021-09-07] MEDS ORDERED: APIXABAN 5 MG TABLET PO SCH (09:00)
== END 2021-09-02 12:54 | disposition home or self-care (01) | DRG 175 ==
LOC: ER 13:45 → 3WST 17:25 → EDBEDREQTM 17:33 → EDBEDREQ 17:33 → SUPCPDRO 20:32
PROVIDERS: ADMIT Internal Medicine Rheumatology; ATTEND Internal Medicine Rheumatology
PROC: 0W9B30Z Drainage of Left Pleural Cavity with Drainage Device, Percutaneous Approach (ICD-10-PCS; principal; 2021-08-27)
PROC: 02HV33Z Insertion of Infusion Device into Superior Vena Cava, Percutaneous Approach (ICD-10-PCS; 2021-08-29)
PROC: B548ZZA Ultrasonography of Superior Vena Cava, Guidance (ICD-10-PCS; 2021-08-29)
DX: I26.09 Other pulmonary embolism with acute cor pulmonale (principal); J96.01 Acute respiratory failure with hypoxia; E46 Unspecified protein-calorie malnutrition; Z68.1 Body mass index [BMI] 19.9 or less, adult; D68.59 Other primary thrombophilia; I82.401 Acute embolism and thrombosis of unspecified deep veins of right lower extremity; I31.3 Pericardial effusion (noninflammatory); M51.37 Other intervertebral disc degeneration, lumbosacral region; M54.12 Radiculopathy, cervical region; D72.810 Lymphocytopenia; I73.00 Raynaud's syndrome without gangrene; K59.00 Constipation, unspecified; M32.9 Systemic lupus erythematosus, unspecified; M81.0 Age-related osteoporosis without current pathological fracture; K21.9 Gastro-esophageal reflux disease without esophagitis; R30.0 Dysuria; J43.9 Emphysema, unspecified; J98.4 Other disorders of lung; I11.0 Hypertensive heart disease with heart failure; F17.210 Nicotine dependence, cigarettes, uncomplicated; D64.9 Anemia, unspecified; T38.0X5A Adverse effect of glucocorticoids and synthetic analogues, initial encounter; D72.829 Elevated white blood cell count, unspecified; I77.6 Arteritis, unspecified; M19.90 Unspecified osteoarthritis, unspecified site; M79.0 Rheumatism, unspecified; J34.0 Abscess, furuncle and carbuncle of nose; I50.9 Heart failure, unspecified; Z79.899 Other long term (current) drug therapy; Z83.2 Family history of diseases of the blood and blood-forming organs and certain disorders involving the immune mechanism; Z86.711 Personal history of pulmonary embolism; Y92.89 Other specified places as the place of occurrence of the external cause
CPT/HCPCS: 36415; 36600; 71045; 71275; 76937; 80048; 80053; 80202; 81003; 82085; 82164; 82375; 82550; 82553; 82805; 83520; 83615; 83880; 84134; 84145; 84439; 84484; 84550; 85025; 85044; 85379; 85651; 86147; 86160; 86225; 86235; 86256; 86880; 93005; 93306; 93970; 94640; 97162; 99291; C1725; J0692; J0696; J1170; J1644; J1956; J2270; J2920; J2930; J3370; J3490; J7040; J7060; J7512; J8610